=== PATIENT | male | born 1970 | race Caucasian/White ===

== ENCOUNTER → 2020-09-20 | Outpatient (CLI) | payer OTHER | END | disposition home or self-care (01) | LOC: LABWHC1 15:38 | PROVIDERS: ATTEND Surgery | DX: Z20.822 Contact with and (suspected) exposure to COVID-19 (principal) ==

== ENCOUNTER 2020-09-28 11:01 | Day surgery (SDC) | payer OTHER ==
[2020-09-24 11:02] VITALS: BMI 32.7
[~2020-09-28 11:01] MED LIST: DEXAMETHASONE SOD PHOSPHATE 4 MG/ML 1 ML VIAL IV ONE; HYDROmorphone 0.5 MG/0.5 ML SYRINGE IVP PRN; LACTATED RINGERS 1,000 ML IV SCH; LIDOCAINE 1% (10MG/ML) FOR IV START INTRADERMA PRN; MIDAZOLAM 2 MG/2 ML VIAL IV PRN
[2020-09-28] MEDS ORDERED: ONDANSETRON 4 MG/2 ML VIAL IVP ONE (11:57)
[2020-09-28] MEDS: HEPARIN SODIUM,PORCINE 5,000 UNIT/ML 1 ML VIAL SQ PRN ×2 (11:57→12:47)
[2020-09-28] MEDS ORDERED: ONDANSETRON 4 MG/2 ML VIAL ONE (12:12)
[2020-09-28] MEDS ORDERED: MIDAZOLAM 2 MG/2 ML VIAL IV ONE (12:28)
[2020-09-28] MEDS ORDERED: fentaNYL (PF) 50 MCG/ML 2 ML AMP IV ONE (12:28)
[2020-09-28 12:58] LABS: Basophils % (A) 1 %; Eosinophils # (A) 0.1 k/uL (0-0.7); Eosinophils % (A) 2 %; HCT 43.4 % (39.0-53.0); HGB 14.6 gm/dL (13.0-17.5); Lymphocytes # (A) 1.2 k/uL (1.0-4.8); Lymphocytes % (A) 36 %; MCH 26.9 pg (25.0-35.0); MCHC 33.6 g/dL (31.0-37.0); MCV 80.2 fL (80.0-100.0); Mean Platelet Volume 7.1; Monocytes # (A) 0.3 k/uL (0-1.0); Monocytes % (A) 8 %; Neutrophils # (A) 1.8 k/uL (1.3-7.7); Neutrophils % (A) 52 %; Platelet Count 216 k/uL (150-450); RBC 5.41 m/uL (4.30-5.90); RDW 13.8 % (11.5-15.5); WBC 3.5 k/uL (3.8-10.6)
--- NOTE | 2020-09-28 13:02 | P.ANPRN ---
Procedure Note - Anesthesia - Nerve Block Performed Bilateral Transversus Abdominis Time Out Performed: Yes (:) Date of Procedure: 09/28/20 Procedure Start Time: Procedure Stop Time: : Location of Patient: PreOp Indication: Acute Post-Operative Pain, Requested by Surgeon (Dr Robertson) Sedation Type: Sedate with meaningful contact maintained Preparation: Sterile Prep Position: Supine Catheter: None Needle Types: Pajunk Needle Gauge: 21 Ultrasound used to visualize needle placement: Yes Ultrasound used to observe medication spread: Yes Injectate: 0.5% Ropivacaine (see comment for volume) (15cc each side. Decadron 2mg each side) Blood Aspirated: No Pain Paresthesia on Injection Noted: No Resistance on Injection: Normal Image Stored and Saved: Yes Events: Uneventful and Well Tolerated
[2020-09-28] MEDS ORDERED: MIDAZOLAM 2 MG/2 ML VIAL ONE (13:22)
[2020-09-28] MEDS ORDERED: NEOSTIGMINE 1 MG/ML 10 ML VIAL ONE (13:22)
[2020-09-28] MEDS ORDERED: SUCCINYLCHOLINE CHLORIDE 100 MG/5 ML SYR IV ONE (13:22)
[2020-09-28] MEDS ORDERED: PROPOFOL 10 MG/ML 20 ML VIAL IV ONE (13:22)
[2020-09-28] MEDS ORDERED: PHENYLEPHRINE-0.9% NACL SYG 1,000 MCG/10 ML SYRINGE ONE (13:22)
[2020-09-28] MEDS ORDERED: HYDROmorphone (PF) 1 MG/ML ONE (13:22)
[2020-09-28] MEDS ORDERED: DEXAMETHASONE SOD PHOSPHATE 4 MG/ML 1 ML VIAL ONE (13:22)
[2020-09-28] MEDS ORDERED: GLYCOPYRROLATE 0.2 MG/ML 2 ML VIAL ONE (13:22)
[2020-09-28] MEDS ORDERED: VECURONIUM 10 MG VIAL IV ONE (13:22)
[2020-09-28] MEDS ORDERED: LIDOCAINE 1% INJ 10MG/ML (20 ML MDV) ONE (13:22)
[2020-09-28] MEDS ORDERED: ROPIVACAINE 5 MG/ML 30 ML VIAL ONE (13:22)
[2020-09-28] MEDS ORDERED: fentaNYL (PF) 50 MCG/ML 2 ML AMP ONE (13:22)
[2020-09-28] MEDS ORDERED: LIDOCAINE 1%-EPI 1:100,000 20 ML VIAL SQ ONE ×2 (13:58)
[2020-09-28] MEDS ORDERED: LACTATED RINGERS 1,000 ML IV ONE ×2 (14:00→15:48)
--- NOTE | 2020-09-28 14:43 | P.OP ---
Date of Procedure: 09/28/20 Preoperative Diagnosis: Bilateral inguinal hernia Postoperative Diagnosis: Bilateral inguinal hernia, direct Procedure(s) Performed: Robotic bilateral inguinal hernia repair with mesh Implants: Parietex Progrip mesh Anesthesia: SANGITA Surgeon: Deepa Robertson Pathology: none sent Condition: stable Disposition: same day Indications for Procedure: 50-year-old male presented to the surgery clinic with complaints of bilateral groin pain. He was found to have bilateral large inguinal hernias. Patient has opted for robotic inguinal hernia repair with mesh placement. Risks, benefits and alternatives were provided to the patient. He did provide consent prior to attending the operative suite. Operative Findings: Bilateral direct inguinal hernias Description of Procedure: The patient was brought to the operating suite and placed in supine position. After general endotracheal anesthesia was induced, Arms were then tucked incised bilaterally and all pressure points were padded. SCDs were also placed in his bilateral lower x-rays and working throughout the entire case. Preoperative antibiotics were given prior to the incision. A timeout was performed with all team members in agreement with correct patient, procedure and location. A supra umbilical incision was made approximately 20 cm superior to the pubic symphysis. The abdomen was entered under direct visualization with a Visiport. At this point, pneumoperitoneum was achieved and 2 additional incisions were made approximately 11 centimeters lateral to the superolateral umbilical incision and a millimeter trochars were placed. The patient was then placed in Trendelenburg position and hernia site was clearly visualized bilaterally. Both were noted to be direct inguinal hernias. The robot was then docked appropriately. Incision was then made just lateral to the medial umbilical ligament on the left side with the monopolar scissors and the peritoneal flap was created and was taken down towards Dalton's ligament. The flap was then extended laterally. Attention was then turned to the direct inguinal hernia. The sac was then freed while preserving the cord structures. At this point, the direct hernia was reduced. Once the entire space was appropriately dissected out, attention was turned to the right side. Incision was then made just lateral to the medial umbilical ligament on the right side with the monopolar scissors and the perito meche flap was created and was taken down towards Dalton's ligament. The flap was then extended laterally. Attention was then turned to the direct inguinal hernia. The sac was then freed while preserving the cord structures. At this point, the direct hernia was reduced. Once the entire space was appropriately dissected out, we brought the laparoscopic anatomic Parietex progrip mesh and unrolled it over the hernia sites. Once appropriately in place, the peritoneal flaps were closed using running 20V lock sutures. Once this was completed, we removed all the robotic insurance and undocked the robot. The supra umbilical fascial incision site was closed with a 0 Vicryl suture using a Ector-Roslyn device under direct visualization. All skin incisions were then closed with 4-0 Vicryl suture. The patient was awakened and taken to postoperative care unit in stable condition.
[2020-09-28 14:59] VITALS: TEMP 97.5
[2020-09-28 15:17] VITALS: RESP 16
[2020-09-28] MEDS ORDERED: HYDROcodone/APAP 5-325MG 1 EACH TAB ONE (16:11)
[2020-09-28] MEDS ORDERED: HYDROcodone/APAP 5-325MG 1 EACH TAB PO ONE (16:12)
[2020-09-28 16:57] VITALS: BP 115/72; PULSE 70
== END 2020-09-28 17:26 | disposition home or self-care (01) ==
LOC: OR 11:01
PROVIDERS: ATTEND Surgery
DX: K40.20 Bilateral inguinal hernia, without obstruction or gangrene, not specified as recurrent (principal); G43.909 Migraine, unspecified, not intractable, without status migrainosus; Z98.890 Other specified postprocedural states; Z91.030 Bee allergy status; Z83.3 Family history of diabetes mellitus; Z80.8 Family history of malignant neoplasm of other organs or systems
CPT/HCPCS: 49650; S2900; 64488; 85025; 86850; 86900; 86901

== ENCOUNTER → 2021-02-01 | Outpatient (CLI) | payer OTHER ==
--- NOTE | 2021-02-01 12:05 | XR ---
EXAMINATION TYPE: XR chest 2V DATE OF EXAM: 02/01/2021 COMPARISON: NONE TECHNIQUE: PA and lateral views submitted. HISTORY: Chest pain FINDINGS: The lungs are clear and there is no pneumothorax, pleural effusion, or focal pneumonia. Heart size normal. No overt failure. Biapical pleural thickening. Hypertrophic and degenerative change of the sp ine with chronic appearing compression deformity midthoracic spine. Hyperinflation suggests COPD. IMPRESSION: 1. Correlate for COPD
== END | disposition home or self-care (01) ==
LOC: RADXRMAIN 11:17
PROVIDERS: ATTEND Internal Medicine
DX: J44.9 Chronic obstructive pulmonary disease, unspecified (principal)
CPT/HCPCS: 71046

== ENCOUNTER → 2022-03-14 | Outpatient (CLI) | payer OTHER ==
--- NOTE | 2022-03-14 15:50 | XR ---
EXAMINATION TYPE: XR chest 2V DATE OF EXAM: 03/14/2022 COMPARISON: NONE TECHNIQUE: PA and lateral views submitted. HISTORY: Pain FINDINGS: The lungs are clear and there is no pneumothorax, pleural effusion, or focal pneumonia. Heart size normal. Biapical pleural thickening. Hypertrophic and degenerative change of the spine. No overt fail ure. IMPRESSION: 1. No acute process.
--- NOTE | 2022-03-14 16:00 | XR ---
EXAMINATION TYPE: XR thoracic spine 2V DATE OF EXAM: 03/14/2022 COMPARISON: NONE HISTORY: Pain TECHNIQUE: 3 views submitted FINDINGS: Alignment is anatomic. There is multilevel hypertrophic and degenerative changes. There is an age in determinate compression deformity in the mid to upper thoracic spine. This is been reported by prior exam. Previous exams are not available for comparison. IMPRESSION: 1. Probable chronic compression deformity mid thoracic spine with multilevel hypertrophic and degener ative change. Recommend follow-up MRI.
== END | disposition home or self-care (01) ==
LOC: RADXRMAIN 10:03
PROVIDERS: ATTEND Internal Medicine
DX: M47.814 Spondylosis without myelopathy or radiculopathy, thoracic region (principal); M54.6 Pain in thoracic spine
CPT/HCPCS: 71046; 72070

== ENCOUNTER → 2022-03-27 | Outpatient (CLI) | payer OTHER ==
--- NOTE | 2022-03-27 10:13 | MR ---
EXAMINATION TYPE: MR thoracic spine wo con DATE OF EXAM: 03/27/2022 7:39 AM COMPARISON: NONE HISTORY: T SPINE FRACTURE Multiplanar MultiSpin echo imaging of the thoracic spine was performed. Disc spaces: Mild decreased signal loss of height noted involving T3-T8. Minimal posterior disc bulge . No herniation of protrusion. Ventral spondylosis. Spinal canal: No evidence for canal stenosis. No intrinsic or extrinsic lesion. Thoracic spinal cord: Thoracic spinal cord is of normal caliber and signal. Paraspinal soft tissues: No evidence for paraspinal mass. No destructive lesions seen. Vertebral segments: There is nonacute loss of height involving T3 and T5 with loss of height estimate d at 25% at T3 and 50% at T5. There is minimal loss of height superior endplate of T1 is estimated at 5%. There is no evidence of bony retropulsion or central stenosis. IMPRESSION: 1. Nonacute thoracic fractures without evidence for bony retropulsion.
== END | disposition home or self-care (01) ==
LOC: RADMRIMAIN 07:02
PROVIDERS: ATTEND Internal Medicine
DX: S22.009A Unspecified fracture of unspecified thoracic vertebra, initial encounter for closed fracture (principal)
CPT/HCPCS: 72146